=== PATIENT | female | born 1975 | race Caucasian/White ===

== ENCOUNTER 2017-08-07 08:47 | Emergency (ER) | payer SELFPAY ==
--- NOTE | 2017-08-07 09:29 | ER Document Report ---
HPI - HPI Patient complains to provider of: left foot pain Pain Level: 4 Context: 42 yo female c/o pain to left foot x 2 days. pt felt a pop in the bottom middle of her foot yesterday while she was bending down. + acute pain to middle of foot. difficult to walk. no redness or swelling or echymosis Associated Symptoms: None Exacerbated by: Movement, Walking Relieved by: Denies Similar symptoms previously: Yes - pain in similar area but not this intense Recently seen / treated by doctor: No - ROS Systems Reviewed and Negative: Yes All other systems reviewed and negative - REPRODUCTIVE Reproductive: DENIES: : - DERM Skin Color: Normal Past Medical History - General Information source: Patient - Social History Smoking Status: Current Every Day Smoker Frequency of alcohol use: None Drug Abuse: None Occupation: [employer] Lives with: Family Family History: Arthritis, CAD, COPD, CVA, DM, Hyperlipidemia, Hypertension, Malignancy. denies: Thyroid Disfunction - Medical History Medical History: Negative Renal/ Medical History: Denies: Hx Peritoneal Dialysis Musculoskeltal Medical History: Reports Hx Arthritis, Reports Hx Musculoskeletal Deformity, Reports Hx Musculoskeletal Trauma Traumatic Medical History: Reports: Hx Fractures - coccyx Past Surgical History: Reports: Hx Section, Hx Orthopedic Surgery - ganglion cyst - Immunizations Immunizations up to date: Yes Hx Diphtheria, Pertussis, Tetanus Vaccination: Yes Vertical Provider Document - CONSTITUTIONAL Agree With Documented VS: Yes Exam Limitations: No Limitations - INFECTION CONTROL TRAVEL OUTSIDE OF THE [place] IN LAST 30 DAYS: No - HEENT HEENT: Atraumatic, PERRLA - NECK Neck: Normal Inspection, Supple - RESPIRATORY Respiratory: Breath Sounds Normal, No Respiratory Distress O2 Sat by Pulse Oximetry: 100 - CARDIOVASCULAR Cardiovascular: Regular Rate, Regular Rhythm - MUSCULOSKELETAL/EXTREMETIES Musculoskeletal/Extremeties: Tender - left foot with focal tenderness from mid plantar heel to mid plantar foot c/w plantar fasciitis. distal SMC intact. left ankle NT with FROM. - NEURO Level of Consciousness: Awake, Alert, Appropriate - DERM Integumentary: Warm, Dry, No Rash Course - Re-evaluation Re-evalutation: 08/07/17 09:30 pt's pain is most c/w plantar fasciitis. she has no bony tenderness, no signs of infection or circulatory compromise. pt has no risk factors for a DVT. will treat discomfort with anti inflammatory medication, ice and stretches. pt instructed to f/u with primary or ortho if pain persists and return to ER for any worsening. pt was offered xray today, but declined. pt was offered crutched but declines. she will use friend's crutches. pt agreeable with plan and stable for discharge - Vital Signs Vital signs: Temp Pulse Resp BP Pulse Ox 97.9 F 75 18 127/86 H 100 08/07/17 08:50 08/07/17 08:50 08/07/17 08:50 08/07/17 08:50 08/07/17 08:50 Discharge - Discharge Clinical Impression: Acute pain of left foot Condition: Stable Disposition: HOME, SELF-CARE Instructions: Plantar Fasciitis or Heel Spur ([facility]), Ice Massage ([facility]), Elevate the Injury ([facility]), Ibuprofen (General) ([facility]), Use of Crutches ([facility]) Additional Instructions: Take Ibuprofen as prescribed ice massage to bottom of foot gentle stretches as demonstrated use crutches until able to bear weight without pain follow up with primary care/ortho if pain persists Prescriptions: Ibuprofen [Motrin 800 Mg Tablet] 800 mg PO Q6H #20 tablet Forms: Return to Work
[2017-08-07 09:49] VITALS: BP 118/72
== END 2017-08-07 09:48 | disposition home or self-care (01) ==
LOC: ER 08:47
DX: M79.672 Pain in left foot (principal); R26.2 Difficulty in walking, not elsewhere classified; F17.200 Nicotine dependence, unspecified, uncomplicated
CPT/HCPCS: 99283